=== PATIENT | female | born 1940 | race Caucasian/White ===

== ENCOUNTER 2016-11-22 19:56 | Observation (INO) | payer MEDICARE, BC, MEDICAID ==
[2016-11-22 23:05] LABS: BASOPHILS 0.1 % (0-2); EOSINOPHILS 1.1 % (0-7); HEMATOCRIT 30.8 % (36.0-48.0); HEMOGLOBIN 10.1 g/dL (12-16); IMMATURE GRANULOCYTES 0.9 % (0-5); MCH 34.2 pg (26.0-34.0); MCHC 32.8 g/dL (31.0-37.0); MCV 104.4 fL (80.0-100.0); MONOCYTES 11.5 % (2-11); NEUTROPHILS 67.4 % (40-80); PLATELET COUNT 156 10x3/uL (130-400); RBC 2.95 10x6/uL (4.00-5.40); RDW 16.1 % (11.5-14.5); WBC 8.8 10x3/uL (4.8-10.8)
[2016-11-22 23:24] LABS: ALBUMIN 2.6 g/dL (3.4-5.0); ALKALINE PHOSPHATASE 320 U/L (46-116); ALT (SGPT) 11 U/L (10-68); BILIRUBIN - TOTAL 0.48 mg/dL (0.2-1.3); CALC OSMOLALITY 284 mosm/kg (275-300); CALCIUM 8.9 mg/dL (8.5-10.1); CARBON DIOXIDE 32.1 mmol/L (21.0-32.0); CHLORIDE - SERUM 106 mmol/L (98-107); CREATININE - SERUM 1.2 mg/dL (0.6-1.3); GLUCOSE 86 mg/dL (74-106); POTASSIUM - SERUM 3.7 mmol/L (3.5-5.1); SODIUM 142 mmol/L (136-145); UREA NITROGEN 21 mg/dL (7-18); eGFR NON AFRICAN AMERICAN 46 mL/min (90-120)
[2016-11-22 23:40] LABS: CHOL - HDL RATIO 3.9 ratio (2.3-4.1); CHOLESTEROL, TOTAL 100 mg/dL (0-200); CKMB 0.9 U/L (0.0-3.6); CREATINE KINASE 33 UL (21-215); HDL CHOLESTEROL 26 mg/dL (32-96); LDL CHOLESTEROL 61 mg/dL (0-100); LDL-HDL RATIO 2.3 ratio (1.5-3.5); TRIGLYCERIDE 67 mg/dL (30-200)
[2016-11-22 23:46] LABS: TROPONIN-I 0.079 ng/mL (0.000-0.060)
[2016-11-23 00:27] LABS: DIGOXIN 1.47 ng/mL (0.90-2.00); VALPROIC ACID (DEPAKOTE) 54.7 ug/mL (50.0-100.0)
[2016-11-23] MEDS ORDERED: ACETAMINOPHEN500 M1 PO (02:08)
[2016-11-23] MEDS ORDERED: BUSPAR10 MG PO (02:08)
[2016-11-23] MEDS ORDERED: BUSPAR5 MG PO (02:09)
[2016-11-23] MEDS ORDERED: SINEMET CR 50-1 EACH PO (02:10)
[2016-11-23] MEDS ORDERED: VITAMIN D31000 UNIT PO (02:11)
[2016-11-23] MEDS ORDERED: QUESTRAN LIG1 PACKET PO (02:11)
[2016-11-23] MEDS ORDERED: LANOXIN125 MCG PO (02:12)
[2016-11-23] MEDS ORDERED: DEPAKOTE250 MG PO (02:13)
[2016-11-23] MEDS ORDERED: ARICEPT10 MG PO (02:13)
[2016-11-23] MEDS ORDERED: FERROUS SULFAT325 MG PO (02:13)
[2016-11-23] MEDS ORDERED: NEURONTIN 300300 MG PO (02:14)
[2016-11-23] MEDS ORDERED: MELATONIN 3 MG1 TAB PO (02:15)
[2016-11-23] MEDS ORDERED: SYNTHROID75 MCG PO (02:15)
[2016-11-23] MEDS ORDERED: METOPROLOL TART25 MG PO (02:16)
[2016-11-23] MEDS ORDERED: REMERON15 MG PO (02:18)
[2016-11-23] MEDS ORDERED: NITRO-DUR0.3 MG TRANSDERM (02:18)
[2016-11-23] MEDS ORDERED: SINGULAIR10 MG PO (02:18)
[2016-11-23] MEDS ORDERED: NITROSTAT0.4 MG SL (02:19)
[2016-11-23] MEDS ORDERED: K-DUR20 MEQ PO (02:19)
[2016-11-23] MEDS ORDERED: FLORASTOR250 MG PO (02:20)
[2016-11-23] MEDS ORDERED: COUMADIN2.5 MG PO (02:21)
[2016-11-23] MEDS ORDERED: CALAN80 MG PO (02:21)
[2016-11-23] MEDS ORDERED: VITAMIN B-121000 MCG PO (02:26)
[2016-11-23 06:18] LABS: INR 2.29 (0.85-1.17); PROTIME 25.3 SECONDS (11.6-15.0)
[2016-11-23 06:19] LABS: APTT 48.8 SECONDS (22.8-39.4)
[2016-11-23 06:41] LABS: CKMB 0.7 U/L (0.0-3.6); CREATINE KINASE 15 UL (21-215)
[2016-11-23 06:57] LABS: TROPONIN-I 0.073 ng/mL (0.000-0.060)
[2016-11-23 12:31] LABS: CKMB 0.5 U/L (0.0-3.6); CREATINE KINASE 9 UL (21-215); TROPONIN-I 0.056 ng/mL (0.000-0.060)
[2016-11-23 19:20] LABS: CKMB 0.4 U/L (0.0-3.6); CREATINE KINASE 9 UL (21-215); TROPONIN-I 0.053 ng/mL (0.000-0.060)
== END 2016-11-24 19:36 ==
LOC: D.ER 19:56 → D.M2 11-23 00:03
PROVIDERS: Emergency Medicine; Physician Assistant Medical; ADMIT Internal Medicine Cardiovascular Disease
DX: I25.119 Atherosclerotic heart disease of native coronary artery with unspecified angina pectoris (principal); I48.91 Unspecified atrial fibrillation; Z95.0 Presence of cardiac pacemaker; I10 Essential (primary) hypertension; Z86.73 Personal history of transient ischemic attack (TIA), and cerebral infarction without residual deficits; Z95.5 Presence of coronary angioplasty implant and graft